=== PATIENT | male | born 1940 | race Caucasian/White ===

== ENCOUNTER 2024-04-24 07:40 | Day surgery (SDC) | payer OTHER ==
[2024-04-24] MEDS ORDERED: NA CHLORIDE 0.9% 250 ML ONE (08:16)
[2024-04-24 08:52] VITALS: BMI 29.4
[2024-04-24 13:05] LABS: Hemoglobin 7.8 g/dL (13.6-17.9)
[2024-04-24 13:55] VITALS: BP 117/52; TEMP 98; O2SAT 98
== END 2024-04-24 12:58 | disposition home or self-care (01) ==
LOC: DS 07:40
PROVIDERS: ATTEND Internal Medicine
DX: D50.0 Iron deficiency anemia secondary to blood loss (chronic) (principal); D46.B Refractory cytopenia with multilineage dysplasia and ring sideroblasts; K31.811 Angiodysplasia of stomach and duodenum with bleeding; C21.1 Malignant neoplasm of anal canal; Z71.3 Dietary counseling and surveillance
CPT/HCPCS: 36415; 86900; 86850; 86901; 86920; 85018; 85014; 36430; P9016; J7050

== ENCOUNTER 2024-06-10 09:27 | Emergency (ER) | payer OTHER ==
--- OUTSIDE RECORDS SUMMARY | 2024-06-10 09:30 | XMS REPORT | Continuity of Care Document ---
Author Name Unknown Address [address] [facility] [address] [place] [address] [facility] thconnect Address [address] [facility] [address] [place] [address] Care Team Providers Care Merchant Tailor Name Role Phone Niharika Altman Primary Care Physician [phone] Aldair Gonzales Attending Clinician Unavailable WANDA BAUM Attending Clinician Unavail able Wanda Baum DPM Attending Clinician [phone] Rojelio_S_JEANNETTE Attending Clinician Unavailable JESSICA CUEVA Attending Clinician Un available Johana-Mbayo_A_AH Attending Clinician Unavailable Miller_S_AH Admitting Clinician Unavailable Johana-Mbayo_A_AH Admitting Clinician Unavailable Payers Payer Name Policy Type Policy Number Effective Date Expirati on Date Source [facility] MEDICAID DUAL DSNP Medicaid [id number] 2023 00:00:00 [facility] (MEDICARE REPLACEMENT/ADVANT AGE - HMO) [id number] 00:00:00 Problems Condition Name Condition Details Condition Category Status Onset Date Resolution Date Last Treatment Date Treating Clinician Comments Source Senile purpura Senile Purpura Problem Active 2019-06 2-21 00:00: 00 [facility] Hyperchole sterolemia Hyperchole sterolemia Problem Active 2018-06 0-16 00:00: 00 [facility] Myelodyspl astic syndrome (clinical) Myelodyspl astic Syndrome (Clinical) Problem Active 2018-06 007 00:00: 00 [facility] 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 12-20 00:00: 00 [facility] Aplastic anemia Aplastic Anemia Problem Active 12-20 00:00: 00 [facility] Gastroesop hageal reflux disease Gastroesop hageal Reflux Disease Problem Active 12-16 00:00: 00 [facility] Allergies, Adverse Reactions, Alerts Allergy Name Allergy Type Status Severity Reaction(s) Onset Date Inactive Date Treating Clinician Comments Source ALLERGIE S NOT ON FILE SYSTEMIC Active [facility]OUT ALLERGIE S NOT ON FILE SYSTEMIC Active [facility]OUT ALLERGIE S NOT ON FILE SYSTEMIC Active M[facility]OUT Social History Social Habit Start Date Stop Date Quantity Comments Source Gender identity 2023-09-08 17:58:10 Identifies as male gender (finding) [facility] Sexual orientation [facility] Smoking Status Start Date Stop Date Source Former Smoker [facility] Practice Tobacco smoking consumption unknown [facility] Medications Ordered Medication Name Filled Medication Name Start Date Stop Date Current Medication? Ordering Clinician Indication Dosage Frequency Signature (SIG) Comments Components Source INSTILL 1 DROP INTO RIGHT EYE 3 TIMES A DAY FOR 28 DAYS 2021-06 00:00: 00 No [place] [id number] OIN 2021-06 00:00: 00 No INSTILL 1 DROP INTO RIGHT EYE 3 TIMES A DAY FOR 28 DAYS 2021-06 00:00: 00 No [place]STATIN [id number] OIN 2021-06 00:00: 00 No Centrum Silver Men 1 tab daily Centrum Silver Men 1 tab daily No Centrum Silver Men 1 tab daily [facility] cephalexin 500 mg capsule cephalexin 500 mg capsule No cephalexin 500 mg capsule [facility] Fluad 65yr up(PF)45 mcg(15 mcgx3)/0.5 mL intramuscul ar syringe Fluad 65yr up(PF)45 mcg(15 mcgx3)/0.5 mL intramuscul ar syringe No Fluad 65yr up(PF)45 mcg(15 mcgx3)/0.5 mL intramuscu lar syringe [facility] Flublok Quad (PF) 180 mcg (45 mcg x 4)/0.5 mL IM syringe Flublok Quad (PF) 180 mcg (45 mcg x 4)/0.5 mL IM syringe No Flublok Quad (PF) 180 mcg (45 mcg x 4)/0.5 mL IM syringe [facility] nystatin 100,000 unit/gram topical ointment APPLY TO AFFECTED AREA TWICE A DAY nystatin 100,000 unit/gram topical ointment APPLY TO AFFECTED AREA TWICE A DAY No nystatin 100,000 unit/gram topical ointment APPLY TO AFFECTED AREA TWICE A DAY [facility] omeprazole 40 mg capsule,del ayed release TAKE 1 CAPSULE BY MOUTH EVERY DAY omeprazole 40 mg capsule,del ayed release TAKE 1 CAPSULE BY MOUTH EVERY DAY No omeprazole 40 mg capsule,de layed release TAKE 1 CAPSULE BY MOUTH EVERY DAY [facility] Pneumovax-2 3 25 mcg/0.5 mL injection syringe Pneumovax-2 3 25 mcg/0.5 mL injection syringe No Pneumovax- 23 25 mcg/0.5 mL injection syringe [facility] pravastatin 40 mg tablet Take 1 tablet every day by oral route. pravastatin 40 mg tablet Take 1 tablet every day by oral route. No pravastati n 40 mg tablet Take 1 tablet every day by oral route. [facility] Procrit 10,000 unit/mL injection solution Take 1 unit every month by injection route. Procrit 10,000 unit/mL injection solution Take 1 unit every month by injection route. No 1unit(s ) Procrit 10,000 unit/mL injection solution Take 1 unit every month by injection route. [facility] Vital Signs Vital Name Observation Time Observation Value Comments S ource Height 2020-06-25 00:00:00 70 [in_i] [facility] Height 2019-12-31 00:00:00 70 [in_i] [facility] BMI (Body Mass Index) 2019-12-31 00:00:00 28.1 kg/m2 [facility] Body Weight 2019-12-31 00:00:00 196 [lb_av] [facility] BP Systolic 2022-04-24 10:59:00 118 mm[Hg] BP Diastolic 2022-04-24 10:59:00 59 mm[Hg] Weight Measured 2022-04-24 10:59:00 197.00 pounds Height Measured 2022-04-24 10:59:00 69.29 inches Body Temperature 2022-04-24 10:59:00 98.30 degrees Heart Rate 2022-04-24 10:59:00 77.00 /min Respiratory Rate 2022-04-24 10:59:00 16.00 /min Heart Rate 2022-04-19 08:29:00 82.00 /min Respiratory Rate 2022-04-19 08:29:00 17.00 /min BP Systolic 2022-04-19 08:29:00 122 mm[Hg] BP Diastolic 2022-04-19 08:29:00 64 mm[Hg] Weight Measured 2022-04-19 08:29:00 207.40 pounds Height Measured 2022-04-19 08:29:00 69.29 inches Body Temperature 2022-04-19 08:29:00 98.40 degrees Plan of Care Planned Activity Planned Date Details Comments Source Goal Plan of Care Note [code = 85091-9] Goal Plan of Care Note [code = 21787-0] Goal Plan of Care Note [code = 60223-8] Goal Plan of Care Note [code = 03954-3] Goal Plan of Care Note [code = 05369-9] Goal Plan of Care Note [code = 75543-3] Goal Plan of Care Note [code = 15180-7] Goal Plan of Care Note [code = 13263-5] Encounters Start Date/Time End Date/Time Encounter Type Admission Type Attending [facility] Care Facility Care Department Encounter ID Source 2024-02-11 10:13:00 [facility] [id number] [facility] 2024-01-10 09:01:00 [facility] [id number] [facility] 2023-10-03 08:21:01 [facility] [id number] [facility] 2023-08-10 14:37:00 [facility] [id number] [facility] 2022-10-26 10:14:03 Outpatient Aldair Gonzales [facility] [id number] [facility] 2024-05-26 11:42:36 2024-05-26 12:26:24 Outpatient Elective SELBSTWANDA ARGENTINA MHEOUT [id number] EOUT 2024-05-26 12:00:00 2024-05-26 12:10:00 Office Visit Selbst, Wanda [facility] [id number] [facility]24-[facility]-03 13:20:00 2024-03-03 13:43:44 Office Visit SelsandiWanda [facility] [id number] [facility] 2024-03-03 13:06:33 2024-03-03 13:43:44 Outpatient Elective SELBSTWANDA ValerioOUT EOUT [id number] EOUT 2023-12-05 11:00:00 2023-12-05 11:11:43 Office Visit SelbstWanda [facility] [id number] [facility] 2023-12-05 10:42:06 2023-12-05 11:11:43 Outpatient Elective SELBSTWANDA ValerioOUT EOUT [id number] EOUT 2022-05-08 14:24:16 2022-05-08 14:24:16 Outpatient SFA [facility] [id number] Bebeto Aguilar 2022-05-01 15:25:13 2022-05-01 15:25:13 Outpatient SFA [facility] [id number] Bebeto Aguilar 2022-04-26 10:06:07 2022-04-26 10:06:07 Outpatient SFA S[facility] [id number] Bebeto Aguilar 2022-04-24 17:06:58 2022-04-24 17:06:58 Outpatient SFA [facility] [id number] Bebeto Aguilar 2022-04-24 00:00:00 2022-04-24 00:00:00 Outpatient Visit [id number] 2022-04-19 08:25:40 2022-04-19 08:25:40 Outpatient SFA SFA [id number] Bebeto Aguilar 2022-04-19 00:00:00 2022-04-19 00:00:00 Outpatient Visit [id number] 2020-11-23 04:59:00 2020-11-23 04:59:00 Outpatient Miller_S_AH VFP VFP [id number] [facility] e 2020-08-23 09:29:00 2020-08-23 23:59:00 Outpatient JESSICA CUEVA [facility] [id number] [facility] 2020-07-20 03:02:00 2020-07-20 03:02:00 Outpatient Johana-Mbayo _A_AH VFP VFP [id number] [facility] e 2020-07-20 03:02:00 2020-07-20 03:02:00 Outpatient Johana-Mbayo _A_AH VFP VFP [id number] [facility] e 2020-06-29 09:33:00 2020-06-29 09:33:00 Outpatient Johana-Mbayo _A_AH VFP VFP [id number] [facility] e 2020-06-25 00:00:00 2020-06-25 00:00:00 Livcrys calzada, DIELECTRIC TESTER: [address], [address], [place] [address] , Ph. VFP [place] - [facility] - [email or web address]_ [email or web address] [facility] [id number] [facility] 2020-02-24 01:32:00 2020-02-24 01:32:00 Outpatient VFP VFP [id number] [facility] 2020-02-24 01:32:00 2020-02-24 01:32:00 Outpatient Johana-Mbayo _A_AH VFP VFP [id number] [facility] 2020-02-24 01:32:00 2020-02-24 01:32:00 Outpatient VFP VFP [id number] [facility] 2020-01-28 07:09:00 2020-01-28 07:09:00 Outpatient Johana-Mbayo _A_AH VFP VFP [id number] [facility] 2020-01-21 04:29:00 2020-01-21 04:29:00 Outpatient Johana-Mbayo _A_AH VFP VFP [id number] [facility] 2020-01-16 01:39:00 2020-01-16 01:39:00 Outpatient Johana-Mbayo _A_AH VFP VFP [id number] [facility] 2020-01-06 07:47:00 2020-01-06 07:47:00 Outpatient Johana-Mbayo _A_AH VFP VFP [id number] [facility] 2019-12-31 00:00:00 2019-12-31 00:00:00 Liv calzada, DIELECTRIC TESTER: [address], [address], [place] [address] , Ph. VFP [place] - [facility] - [email or web address]_ [email or web address] [facility] [id number] [facility] 2019-08-06 07:26:00 2019-08-06 07:26:00 Outpatient Johana-Mbayo _A_AH VFP VFP [id number] [facility] 2018-11-22 08:39:00 2018-11-22 08:39:00 Outpatient [facility] [id number] [facility] Results Test Description Test Time Test Comments Results Result Co mments Source
[2024-06-10] MEDS ORDERED: NA CHLORIDE 0.9% 500 ML ONE ×2 (09:54→11:47)
[2024-06-10 10:00] LABS: Absolute Basophils 0.1 K/uL (0-0.5); Absolute Lymphocytes (CBC) 0.5 K/uL (0.7-4.9); Absolute Monocytes 1.2 K/uL (0.1-1.3); Absolute Neutrophil 11.2 K/uL (1.8-8.0); Eosinophils % 0.2 % (0-4.4); Hematocrit 21.5 % (39.6-49.0); Hemoglobin 6.6 g/dL (13.6-17.9); Lymphocytes % 3.6 % (15.3-44.8); MCH 31.2 pg (27.0-35.0); MCHC 30.9 g/dL (32.0-36.0); MCV 101.2 fL (80-100); MPV 10.4 fL (7.6-11.3); Monocytes % 9.2 % (3.3-12.3); Nucleated Red Blood Cells % 0.2 % (0-0); Platelets 471 thou/uL (152-406); RBC Red Blood Cell Count 2.12 M/uL (4.33-5.43); Red Cell Distribution Width 36.3 % (12.1-15.2)
[2024-06-10 10:18] LABS: Anion Gap 9.6 mEq/L (5.0-15.0); Potassium 4.6 mEq/L (3.5-5.1)
--- NOTE | 2024-06-10 10:26 | RAD REPORT ---
EXAMINATION: RIGHT RIB SERIES INDICATION: R rib injury RIGHT COMPARISON: 01/19/2012 TECHNIQUE: Frontal and multiple oblique views of the RIGHT ribs. 2 views of the chest also obtained . FINDINGS: Mildly displaced fractures lateral inferior right rib. This involves ribs #7, 8 and 9. Small volume o f right pleural effusion noted.. The lungs are otherwise emphysematous. The heart is upper limit of normal in size.. IMPRESSION: Mildly displaced right inferior lateral rib fractures.. Small right pleural effusion.
[2024-06-10 10:33] LABS: Band Neutrophils 1 % (0-1); Differential Total Cells Count 100; Lymphocytes 7 % (15-42); Monocytes 4 % (0-10); Segmented Neutrophils 88 % (40-80)
[2024-06-10 10:34] LABS: Anisocytosis 3+; Blood Morphology Comment NOTED (NOT SEEN); Platelet Estimate INCR
--- NOTE | 2024-06-10 11:40 | RAD REPORT ---
EXAM: CT CHEST WITH CONTRAST CLINICAL INDICATION: chest trauma TECHNIQUE: Routine CT scan of the chest with intravenous contrast. One or more of the following dose reduction techniques were used: Automated exposure control, adjustment of the mA and/or kV according to patient size, and/or iterative reconstruction. Unless otherwise specified, incidental fi ndings do not require dedicated imaging follow-up. COMPARISON: No prior exam. FINDINGS: LUNGS: Mild atelectasis is seen in both lung bases. Lungs are mildly emphysematous. PLEURA: Trace right pneumothorax estimated at less than 5% lung volume. Small right pleural effusion and trace left pleural effusion. MEDIASTINUM AND LYMPH NODES: No mediastinal mass or fluid collection. Normal size mediastinal, hilar, and axillary lymph nodes. OSSEOUS STRUCTURES AND CHEST WALL: Mildly displaced right lateral rib fractures inferiorly. UPPER ABDOMEN: No significant abnormalities. IMPRESSION: Mildly displaced infralateral right rib fractures. Trace right pneumothorax and small right pleural effusion.
--- NOTE | 2024-06-10 12:47 | EDPHYS ---
Physician Documentation [facility] Name: Christophe Solomon Age: 83 yrs Sex: Male : 1940 Arrival Date: 06/10/2024 Time: 09:27 Bed 2 Private MD: ED Physician Severo Elizalde HPI: 06/10 09:43 This 83 yrs old Male presents to ER via EMS with complaints of GLF, weakness. ec2 09:43 Patient with history of myelodysplastic syndrome arrives today for lightheadedness and ec2 a ground-level fall. States that he felt lightheaded last night and had a fall. Reports right rib pain. No LOC, reports he is not on blood thinners. Patient reports no difficulty breathing or chest pain.. Historical: - Allergies: 09:33 No Known Allergies; ll1 - PMHx: 09:33 M.D.S; ll1 09:33 Hypercholesterolemia; GERD; ll1 - PSHx: 09:36 cancerous polyps removed; ll1 - Immunization history:: Adult Immunizations up to date. - Infectious Disease History:: Denies. - Social history:: Smoking status: Patient/guardian denies using tobacco, the patient reports quitting approximately 1 years ago. ROS: 09:43 Constitutional: as per hpi ec2 Exam: 09:43 Constitutional: GEN: NAD Head: atraumatic Eyes: EOMI Ears: External ears are ec2 normal. CV: regular rate LUNGS: no respiratory distress ABD: non-distended, soft and nontender SKIN: no evidence of rashes MSK: Right lateral rib TTP without crepitus appreciated. No significant ecchymosis noted. Vital Signs: 09:34 BP 127 / 64; Pulse 86; Resp 18; Temp 97.2; Pulse Ox 99% on R/A; Weight 90.72 kg; Height ll1 5 ft. 10 in. ; 10:44 BP 128 / 58; Pulse 85; Resp 17; Pulse Ox 98% on R/A; ll1 11:45 BP 147 / 65; Pulse 75; Resp 18; Pulse Ox 100% on 12 lpm Non-rebreather mask; ll1 12:45 BP 128 / 58; Pulse 87; Resp 18; Pulse Ox 93% on R/A; ll1 13:34 BP 148 / 60; Pulse 84; Resp 17; Pulse Ox 100% on 10 lpm Non-rebreather mask; ll1 14:45 BP 133 / 59; Pulse 79; Resp 18; Pulse Ox 98% on Non-rebreather mask; ll1 15:45 BP 139 / 65; Pulse 76; Pulse Ox 100% ; ll1 16:46 BP 148 / 65; Pulse 80; Resp 17; Temp 98; Pulse Ox 100% on 12 lpm Non-rebreather mask; ll1 09:34 Body Mass Index 28.70 (90.72 kg, 177.8 cm) ll1 MDM: 09:31 Medical Screening Exam initiated ec2 09:43 Data reviewed: vital signs, nurses notes. ED course: Patient arrives today for ec2 evaluation of a ground-level fall. Examination yields MSK findings as above. Will obtain lab work to evaluate for dehydration, anemia, electrolyte disturbances as well as arrhythmia. Will also obtain radiograph to evaluate for rib fracture.. 10:12 ED course: EKG independently reviewed and interpreted by me, shows normal sinus rhythm, ec2 rate of 83, no acute ST segment elevations, intervals are nonactionable.. 11:10 ED course: Metabolic profile is reassuring. CBC shows slight anemia with a hemoglobin ec2 of 6.6. Troponin within normal ranges. Rib series with mildly displaced right lateral rib fracture with associated right pleural effusion. Will transfuse a unit of blood, will obtain CT scan of the chest as well.. 11:54 ED course: CT scan of the chest shows trace right pneumothorax, trace hemothorax, ec2 lateral rib fractures. Will transfer for trauma capable facility.. 13:48 ED course: Discussed case with at [facility] who agrees accept patient for ec2 transfer.. 14:59 ED course: Blood transfused without issue.. ec2 06/10 09:43 Order name: Type And Screen ec2 06/10 09:43 Order name: Basic Metabolic Panel; Complete Time: 11:10 ec2 06/10 09:43 Order name: CBC with Diff; Complete Time: 11:10 ec2 06/10 09:43 Order name: Troponin HS; Complete Time: 11:10 ec2 06/10 10:25 Order name: Manual Differential; Complete Time: 11:10 EDMS 06/10 11:13 Order name: Bb Add On eb 06/10 11:29 Order name: Packed RBC Leukored EDMS 06/10 09:49 Order name: Ribs Unil W/CXR; Complete Time: 11:10 EDMS 06/10 11:11 Order name: CT Chest W/ Con; Complete Time: 11:53 ec2 06/10 11:56 Order name: CT Abd/Pelvis - Without Contrast; Complete Time: 13:02 ec2 06/10 09:43 Order name: EKG; Complete Time: 09:43 ec2 06/10 09:43 Order name: Cardiac monitoring; Complete Time: 10:12 ec2 06/10 09:43 Order name: EKG - Nurse/Tech; Complete Time: 10:12 ec2 06/10 09:43 Order name: IV Saline Lock; Complete Time: 09:51 ec2 06/10 09:43 Order name: Labs collected and sent; Complete Time: 09:51 ec2 06/10 09:43 Order name: O2 Per Protocol; Complete Time: 09:50 ec2 06/10 09:43 Order name: O2 Sat Monitoring; Complete Time: 09:50 ec2 06/10 11:11 Order name: Consent for Blood Transfusion; Complete Time: 11:43 ec2 06/10 11:54 Order name: Misc. Order: non-rebreather 15L; Complete Time: 13:09 ec2 Administered Medications: 10:12 Drug: NS 0.9% IV 500 ml 500 ml IV at 1 bolus once; to be given as a bolus over 30 ll1 minutes Volume: 500 ml; Route: IV; Rate: 1 bolus; Site: right antecubital; 13:36 Follow up: Response: No adverse reaction; IV Status: Completed infusion; IV Intake: ll1 500ml 16:39 Drug: fentaNYL (PF) IVP 25 mcg IVP once {Note: pain 8/10 RASS 0.} Route: IVP; Site: ll1 right antecubital; 16:40 Follow up: Response: No adverse reaction ll1 Disposition Summary: 06/10/24 12:47 Transfer Ordered Notes: Transfer Location: Other Acute Care Facility ec2 Reason: Higher level of care ec2 Condition: Stable ec2 Problem: new ec2 Symptoms: are unchanged ec2 Accepting Physician: transferring doc(06/10/24 16:43) ll1 Diagnosis - Rib Fractures, Trace Hemothorax, Trace Pneumothorax, Anemia ec2 - 9-11 Right Side Rib Fractures, Trace Hemothorax, Trace Pneumothorax, Anemia ec2 - 7-11 Right Side Rib Fractures, Trace Hemothorax, Trace Pneumothorax, Anemia ec2 Forms: - Medication Reconciliation Form ec2 - SBAR form ec2 Critical care time excluding procedures: 11:35 Critical care time: Bedside Care: 30 minutes. Total time: 30 minutes ec2 Signatures: Dispatcher [employer] Ana Luisa Faye RN RN ll1 Severo Elizalde MD MD ec2 Corrections: (The following items were deleted from the chart) 09:49 09:43 Ribs Right+RAD.RAD.BRZ ordered. EDMS EDMS 09:50 09:43 Chest Single View+RAD.RAD.BRZ ordered. EDMS EDMS 11:28 11:11 PACKED RBC LEUKORED+BB.LAB.BRZ ordered. EDMS EDMS 11:28 11:14 ABO/RH typing ordered. EDMS EDMS 11:28 11:14 Antibody Screen ordered. EDMS EDMS 11:56 11:56 Abdomen Pelvis W Con+CT.RAD.BRZ ordered. EDMS EDMS 13:04 12:47 transferring doc ec2 ec2 13:04 13:04 transferring doc ec2 ec2 13:04 13:04 transferring doc ec2 ec2 16:43 13:04 transferring doc ec2 ll1
--- NOTE | 2024-06-10 12:47 | ER ---
Nurse's Notes [facility] Fabián Name: Christophe Solomon Age: 83 yrs Sex: Male : 1940 Arrival Date: 06/10/2024 Time: 09:27 Bed 2 Private MD: Diagnosis: 7-11 Right Side Rib Fractures, Trace Hemothorax, Trace Pneumothorax, Anemia Presentation: 06/10 09:34 Chief complaint: Patient states: Trip and fall last night. R flank pain and swelling ll1 since. EMS states: [facility]. Called out for low BP 107/64, 124/62. Coronavirus screen: Client denies travel out of the [place] in the last 14 days. At this time, the client does not indicate any symptoms associated with coronavirus-19. Ebola Screen: Patient denies travel to an Ebola-affected area in the 21 days before illness onset. Initial Sepsis Screen: Does the patient meet any 2 criteria? No. Patient's initial sepsis screen is negative. Does the patient have a suspected source of infection? No. Patient's initial sepsis screen is negative. Risk Assessment: Do you want to hurt yourself or someone else? Patient reports no desire to harm self or others. Onset of symptoms was June 09, 2024. 09:34 Method Of Arrival: EMS: [facility] 09:34 Acuity: REBECCA 3 ll1 Triage Assessment: 09:34 General: Appears uncomfortable, ill, Behavior is calm, cooperative, appropriate for ll1 age. Pain: Complains of pain in R side of back Quality of pain is described as aching. Neuro: Reports weakness. Musculoskeletal: Reports pain in R side of back. Injury Description: Bruise. Historical: - Allergies: 09:33 No Known Allergies; ll1 - PMHx: 09:33 M.D.S; ll1 09:33 Hypercholesterolemia; GERD; ll1 - PSHx: 09:36 cancerous polyps removed; ll1 - Immunization history:: Adult Immunizations up to date. - Infectious Disease History:: Denies. - Social history:: Smoking status: Patient/guardian denies using tobacco, the patient reports quitting approximately 1 years ago. Screenin:45 [facility] ED Fall Risk Assessment (Adult) History of falling in the last 3 months, ll1 including since admission Yes- physiologic fall (2 pts) Confusion or Disorientation No (0 pts) Intoxicated or Sedated No (0 pts) Impaired Gait Yes (1 pt) Mobility Assist Device Used Yes (1 pt) Altered Elimination No (0 pt) Score/Fall Risk Level 3 or more points = High Risk Maintained a safe environment, Hourly rounding (assess needs \T\ fall precautionary measures) done, Used ambulatory aids as needed (educated on \T\ assisted with). Abuse screen: Denies threats or abuse. Nutritional screening: No deficits noted. Tuberculosis screening: No symptoms or risk factors identified. Assessment: 10:13 Reassessment: No changes from previously documented assessment. Patient and/or family ll1 updated on plan of care and expected duration. Pain level reassessed. Patient is alert, oriented x 3, equal unlabored respirations, skin warm/dry/pink. 11:15 Reassessment: No changes from previously documented assessment. Patient and/or family ll1 updated on plan of care and expected duration. Pain level reassessed. Patient is alert, oriented x 3, equal unlabored respirations, skin warm/dry/pink. 12:18 Reassessment: No changes from previously documented assessment. 1st unit of blood ll1 started per protocol. See blood administration form for further details. 13:15 Reassessment: No changes from previously documented assessment. Patient and/or family ll1 updated on plan of care and expected duration. Pain level reassessed. 14:46 Reassessment: No changes from previously documented assessment. Patient and/or family ll1 updated on plan of care and expected duration. Pain level reassessed. Patient is alert, oriented x 3, equal unlabored respirations, skin warm/dry/pink. 16:11 Reassessment: No changes from previously documented assessment. Patient and/or family ll1 updated on plan of care and expected duration. Pain level reassessed. Patient is alert, oriented x 3, equal unlabored respirations, skin warm/dry/pink. to commode. Vital Signs: 09:34 BP 127 / 64; Pulse 86; Resp 18; Temp 97.2; Pulse Ox 99% on R/A; Weight 90.72 kg; Height ll1 5 ft. 10 in. ; 10:44 BP 128 / 58; Pulse 85; Resp 17; Pulse Ox 98% on R/A; ll1 11:45 BP 147 / 65; Pulse 75; Resp 18; Pulse Ox 100% on 12 lpm Non-rebreather mask; ll1 12:45 BP 128 / 58; Pulse 87; Resp 18; Pulse Ox 93% on R/A; ll1 13:34 BP 148 / 60; Pulse 84; Resp 17; Pulse Ox 100% on 10 lpm Non-rebreather mask; ll1 14:45 BP 133 / 59; Pulse 79; Resp 18; Pulse Ox 98% on Non-rebreather mask; ll1 15:45 BP 139 / 65; Pulse 76; Pulse Ox 100% ; ll1 16:46 BP 148 / 65; Pulse 80; Resp 17; Temp 98; Pulse Ox 100% on 12 lpm Non-rebreather mask; ll1 09:34 Body Mass Index 28.70 (90.72 kg, 177.8 cm) ll1 ED Course: 09:31 Patient arrived in ED. ec2 09:31 Severo Elizalde MD is Attending Physician. ec2 09:33 Arm band placed on Patient placed in an exam room, on a stretcher. ll1 09:35 Provided Education on: ER procedures and process. ll1 09:36 Triage completed. ll1 09:37 Ana Luisa Olson, GUERO is Primary Nurse. ll1 09:45 Initial lab(s) drawn, by ny, sent to lab. ll1 09:51 Inserted saline lock: 20 gauge in right antecubital area, using aseptic technique. ll1 Blood collected. Flushed with 10 mL NS. 10:09 Ribs Unil W/CXR In Process Unspecified. EDMS 10:10 EKG done. ll1 10:46 Patient has correct armband on for positive identification. Bed in low position. ll1 11:35 CT Chest W/ Con In Process Unspecified. EDMS 12:00 Inserted saline lock: 20 gauge in left antecubital area, using aseptic technique. ll1 Flushed with 10 mL NS. 12:33 CT Abd/Pelvis - Without Contrast In Process Unspecified. EDMS 13:09 Packed RBC Leukored Sent. ll1 13:55 \T\[id number] initiated a transfer with Marlee from the [facility]/ \T\ 1345 eb administrative approval given by Marlee Stewart Rn, patient has been accepted to [facility] ED/ Dr. Sandy Pearl has accepted the patient in transfer / report to be called to [phone]. 14:46 No provider procedures requiring assistance completed. Patient transferred, IV remains ll1 in place. Administered Medications: 10:12 Drug: NS 0.9% IV 500 ml 500 ml IV at 1 bolus once; to be given as a bolus over 30 ll1 minutes Volume: 500 ml; Route: IV; Rate: 1 bolus; Site: right antecubital; 13:36 Follow up: Response: No adverse reaction; IV Status: Completed infusion; IV Intake: ll1 500ml 16:39 Drug: fentaNYL (PF) IVP 25 mcg IVP once {Note: pain 8/10 RASS 0.} Route: IVP; Site: ll1 right antecubital; 16:40 Follow up: Response: No adverse reaction ll1 Medication: 10:45 VIS not applicable for this client. ll1 Intake: 13:36 IV: 500ml; Total: 500ml. ll1 Outcome: 12:47 ER care complete, transfer ordered by . ec2 14:46 Transferred by ground EMS to [facility], Transfer form completed. Note: ll1 report called to Dolores Michele RN at [facility] ED 14:46 Condition: stable 14:46 Instructed on the need for transfer, 16:43 Patient left the ED. ll1 Signatures: Dispatcher [employer] Elaine Shields Lynsay, RN RN ll1 Seevro Elizalde MD MD ec2 Corrections: (The following items were deleted from the chart) 13:34 10:18 Reassessment: No changes from previously documented assessment. 1st unit of blood ll1 started per protocol. See blood administration form for further details. ll1
--- NOTE | 2024-06-10 12:58 | RAD REPORT ---
EXAMINATION: CT ABDOMEN AND PELVIS WITHOUT CONTRAST CLINICAL INDICATION: Abdominal pain status post fall TECHNIQUE: CT abdomen and pelvis was performed, as per department protocol. IV contrast and oral was not administered.Axial, sagittal and coronal reconstructions were obtained. One or more of the following dose reduction techniques were used: Automated exposure control, adjustment of the mA and/o r kV according to the patient size, and/or iterative reconstruction. Unless otherwise specified, incidental findings do not require dedicated imaging follow-up. [id number]. COMPARISON: 2011. FINDINGS: The lack of intravenous and oral contrast limits evaluation of solid organs, vessels and bowel. Contrast from a CT chest from earlier in the same day is present within the genitourinary system. Mildly to moderately displaced fracture right lateral seventh rib. Mildly displaced fracture right lateral eighth rib. Mildly displaced fracture right lateral ninth rib. Minimally displaced fracture posterior right 10th rib. Minimally displaced fracture posterior right 11th rib. Small right hemopneumothorax. Small left pleural effusion. The gallbladder is filled with stones. The liver, spleen, pancreas, adrenals and kidneys appear grossly normal. Small renal cysts. No evidence of diverticulitis. Small umbilical hernia. Small left inguinal hernia. Postsurgical [facility] right hernia repair IMPRESSION: Multiple right rib fractures with small right hemopneumothorax
[2024-06-10] MEDS ORDERED: FENTANYL CITR 100 MCG/2 ML ONE (16:33)
[2024-06-10 17:42] VITALS: TEMP 97.2
[2024-06-10 17:45] VITALS: BP 148/60; O2SAT 100
--- NOTE | 2024-06-13 13:45 | EKG ---
Test Date: 2024-06-10 Test Time: 10:09:36 Geriatric Care Manager: VIOLA MEASUREMENT RESULTS: Intervals: Rate: 83 ID: [id number] QRSD: 72 QT: 366 QTc: 430 Selby: P: 78 ID: [id number] QRS: 54 T: 67 INTERPRETIVE STATEMENTS: Normal sinus rhythm Normal ECG Compared to ECG 01/11/2012 06:47:01 No significant changes Electronically Signed On 06-13-24 13:38:11 CLAIMS SUPERVISOR by Jean Marie Gonzales
== END 2024-06-10 16:43 ==
LOC: ER 09:27
DX: J94.2 Hemothorax (principal); J93.9 Pneumothorax, unspecified; S22.41XA Multiple fractures of ribs, right side, initial encounter for closed fracture; W19.XXXA Unspecified fall, initial encounter; D64.9 Anemia, unspecified; D46.9 Myelodysplastic syndrome, unspecified; E78.00 Pure hypercholesterolemia, unspecified; Z87.891 Personal history of nicotine dependence
CPT/HCPCS: 96361; 93005; 85025; 80048; 36415; 86900; 86850; 86901; 86920; 84484; 71260; 74176; 71101; 96374; 99285; Q9967; J3010; P9016; J7040 ×2

== ENCOUNTER 2024-08-21 07:49 | Day surgery (SDC) | payer OTHER ==
[2024-08-21] MEDS ORDERED: NA CHLORIDE 0.9% 500 ML ONE (08:17)
[2024-08-21 09:06] VITALS: TEMP 98.1; BMI 27.3
[2024-08-21 13:10] LABS: Hematocrit 25.6 % (39.6-49.0); Hemoglobin 8.1 g/dL (13.6-17.9)
[2024-08-21 13:34] VITALS: BP 133/51; O2SAT 97
== END 2024-08-21 13:15 | disposition home or self-care (01) ==
LOC: DS 07:49
PROVIDERS: ATTEND Internal Medicine
DX: D50.0 Iron deficiency anemia secondary to blood loss (chronic) (principal); D46.B Refractory cytopenia with multilineage dysplasia and ring sideroblasts; K31.811 Angiodysplasia of stomach and duodenum with bleeding; C21.1 Malignant neoplasm of anal canal
CPT/HCPCS: 36415; 86900; 86850; 86901; 86920; 85018; 85014; 36430; P9016; J7040